=== PATIENT | female | born 1985 | race Caucasian/White ===

== ENCOUNTER 2018-10-16 11:13 | Observation (INO) | payer OTHER ==
[~2018-10-16] VITALS: Ht 168 cm; Wt 121.6 kg
[~2018-10-16 11:13] MED LIST: OXYTOCIN 30 UNITS/LACT RINGERS 500 ML IV ONE; RINGERS SOLUTION,LACTATED 1,000 ML IV PRN
[2018-10-16] MEDS ORDERED: LIDOCAINE/PF 1% 30 ML VIAL INJ PRN (11:15)
[2018-10-16] MEDS ORDERED: METOCLOPRAMIDE HCL 5 MG/ML 2 ML VIAL IVP PRN (11:15)
[2018-10-16] MEDS ORDERED: CITRIC ACID/SODIUM CITRATE 30 ML SOLUTION UDCUP PO PRN (11:15)
[2018-10-16] MEDS ORDERED: FentaNYL CITRATE-PF 100 MCG/2 ML VIAL IVP PRN (11:15)
[2018-10-16] MEDS ORDERED: OXYGEN THERAPY IH SCH (11:15)
[2018-10-16] MEDS ORDERED: METHYLERGONOVINE MALEATE 0.2 MG/ML VIAL IM PRN (11:15)
[2018-10-16] MEDS ORDERED: PREN1TAB80 PO (11:22)
[2018-10-16 11:57] LABS: BASOPHILS % (AUTO) 0.2 % (0.0-2.0); EOSINOPHILS % (AUTO) 0.5 % (1.0-6.0); HEMATOCRIT 37.9 % (36-46); HEMOGLOBIN 12.6 g/dL (12.0-16.0); LYMPHOCYTES # (AUTO) 1.3 K/uL (1.0-4.8); LYMPHOCYTES % (AUTO) 13.3 % (22.0-44.0); MEAN CORPUSCULAR HEMOGLOBIN 30.5 pg (26.0-34.0); MEAN CORPUSCULAR HGB CONC 33.2 G/dL (31.0-37.0); MEAN CORPUSCULAR VOLUME 92 fL (80-100); MONOCYTES # (AUTO) 0.5 K/uL (0.1-1.0); MONOCYTES % (AUTO) 5.1 % (2.0-9.0); NEUTROPHILS # (AUTO) 7.6 K/uL (1.8-7.7); NEUTROPHILS % (AUTO) 80.9 % (40.0-70.0); PLATELET COUNT (AUTO) 265 K/uL (150-450); RED BLOOD CELL COUNT(AUTO) 4.13 MIL/uL (4.00-5.20); RED CELL DISTRIBUTION WIDTH 14.4 % (11.5-14.5)
[2018-10-16] MEDS: RINGERS SOLUTION,LACTATED 1,000 ML IV SCH ×3 (12:03→22:05)
[2018-10-16] MEDS: MISOPROSTOL 50 MCG TABLET PO SCH ×3 (14:11→22:05)
[2018-10-16 21:55] VITALS: BP 108/59
[2018-10-17] MEDS ORDERED: OXYTOCIN 30 UNITS/LACT RINGERS 500 ML IV ONE (01:55)
[2018-10-17] MEDS: MISOPROSTOL 50 MCG TABLET PO SCH (02:02)
[2018-10-17] MEDS ORDERED: OXYTOCIN 30 UNITS/LACT RINGERS 500 ML IV PRN (06:02)
[2018-10-17] MEDS: RINGERS SOLUTION,LACTATED 1,000 ML IV SCH (08:32)
== END 2018-10-17 10:50 | disposition home or self-care (01) ==
LOC: OBSVTOIN 11:13 → 4S 11:13 → INTOOBSV 11:13
PROVIDERS: ADMIT Obstetrics & Gynecology; ATTEND Obstetrics & Gynecology
DX: O09.523 Supervision of elderly multigravida, third trimester (principal); Z3A.39 39 weeks gestation of pregnancy; Z23 Encounter for immunization
CPT/HCPCS: 36415; 76805; 85025; 86850; 86900; 86901; 90471; 90686; 96365; G0378 ×2; J2590; J7120 ×2

== ENCOUNTER 2018-10-24 09:16 | Inpatient (IN) | payer OTHER ==
[~2018-10-24] VITALS: Ht 169 cm; Wt 121.8 kg
[~2018-10-24 09:16] MED LIST changes: -OXYTOCIN 30 UNITS/LACT RINGERS 500 ML IV ONE; +PREN1TAB80 PO; -RINGERS SOLUTION,LACTATED 1,000 ML IV PRN
[2018-10-24] MEDS ORDERED: OXYTOCIN 30 UNITS/LACT RINGERS 500 ML IV ONE (09:23)
[2018-10-24] MEDS ORDERED: RINGERS SOLUTION,LACTATED 1,000 ML IV PRN (09:23)
[2018-10-24] MEDS ORDERED: METOCLOPRAMIDE HCL 5 MG/ML 2 ML VIAL IVP PRN (09:30)
[2018-10-24] MEDS ORDERED: CITRIC ACID/SODIUM CITRATE 30 ML SOLUTION UDCUP PO PRN (09:30)
[2018-10-24 10:21] LABS: BASOPHILS % (AUTO) 0.5 % (0.0-2.0); EOSINOPHILS % (AUTO) 0.6 % (1.0-6.0); HEMATOCRIT 37.2 % (36-46); HEMOGLOBIN 12.4 g/dL (12.0-16.0); LYMPHOCYTES # (AUTO) 1.5 K/uL (1.0-4.8); LYMPHOCYTES % (AUTO) 16.9 % (22.0-44.0); MEAN CORPUSCULAR HEMOGLOBIN 30.8 pg (26.0-34.0); MEAN CORPUSCULAR HGB CONC 33.4 G/dL (31.0-37.0); MEAN CORPUSCULAR VOLUME 92 fL (80-100); MONOCYTES # (AUTO) 0.6 K/uL (0.1-1.0); MONOCYTES % (AUTO) 6.4 % (2.0-9.0); NEUTROPHILS # (AUTO) 6.6 K/uL (1.8-7.7); NEUTROPHILS % (AUTO) 75.6 % (40.0-70.0); PLATELET COUNT (AUTO) 265 K/uL (150-450); RED BLOOD CELL COUNT(AUTO) 4.03 MIL/uL (4.00-5.20)
[2018-10-24] MEDS: MISOPROSTOL 50 MCG TABLET PO SCH ×3 (10:36→18:17)
[2018-10-24] MEDS: RINGERS SOLUTION,LACTATED 1,000 ML IV SCH ×2 (10:36→17:00)
[2018-10-24 13:32] VITALS: BP 108/58
[2018-10-24] MEDS ORDERED: AMPICILLIN SODIUM 2 GM/NS 100 ML IV ONE (19:00)
[2018-10-24] MEDS ORDERED: OXYGEN THERAPY IH SCH (20:00)
[2018-10-24] MEDS ORDERED: OXYTOCIN 30 UNITS/LACT RINGERS 500 ML IV PRN (20:30)
[2018-10-24] MEDS: AMPICILLIN SODIUM 1 GM/NS 50 ML IV SCH (23:01)
[2018-10-25] MEDS ORDERED: ONDANSETRON HCL 4 MG/2 ML VIAL IVP PRN
[2018-10-25] MEDS ORDERED: NALBUPHINE HCL 10 MG/ML VIAL IVP PRN
[2018-10-25] MEDS ORDERED: DiphenhydrAMINE HCL 50 MG/ML VIAL IVP PRN
[2018-10-25] MEDS ORDERED: ROPIVACAINE HCL/PF 0.2% 100 ML ED PRN
[2018-10-25] MEDS ORDERED: LIDOCAINE/PF 2% 5 ML VIAL ONE ×3 (00:10→08:43)
[2018-10-25] MEDS ORDERED: ROPIVACAINE HCL/PF 0.2% 100 ML ED ONE ×2 (00:10→08:43)
[2018-10-25] MEDS: FentaNYL CITRATE-PF 100 MCG/2 ML VIAL IVP PRN ×2 (03:34→03:35)
[2018-10-25] MEDS: RINGERS SOLUTION,LACTATED 1,000 ML IV SCH ×2 (03:37→09:10)
[2018-10-25] MEDS: AMPICILLIN SODIUM 1 GM/NS 50 ML IV SCH ×2 (07:08→11:45)
[2018-10-25] MEDS ORDERED: MINERAL OIL 30 ML UDCUP VG ONE (10:30)
[2018-10-25] MEDS ORDERED: OXYTOCIN 30 UNITS/LACT RINGERS 500 ML IV ONE (16:48)
[2018-10-25] MEDS ORDERED: IBUPROFEN 800 MG TABLET PO PRN (17:00)
[2018-10-25] MEDS ORDERED: OxyCODONE HCL/ACETAMINOPHEN 5-325 MG TABLET PO PRN ×2 (17:00)
[2018-10-25] MEDS ORDERED: GLYCERIN/WITCH HAZEL LEAF 40 PADS JAR TP PRN (17:00)
[2018-10-25] MEDS ORDERED: BENZOCAINE 20%/MENTHOL 56 GM SPRAY CANISTER TP PRN (17:00)
[2018-10-25] MEDS ORDERED: LIDOCAINE/PF 1% 30 ML VIAL INJ PRN (17:00)
[2018-10-25] MEDS ORDERED: LANOLIN 7 GM OINTMENT TP PRN (17:00)
[2018-10-25] MEDS ORDERED: MISOPROSTOL 100 MCG TABLET ONE (17:27)
[2018-10-25] MEDS ORDERED: RINGERS SOLUTION,LACTATED 1,000 ML IV ONE (17:27)
[2018-10-25] MEDS ORDERED: ACETAMINOPHEN 325 MG TABLET PO ONE (17:30)
[2018-10-25] MEDS ORDERED: MISOPROSTOL 100 MCG TABLET PO ONE (17:30)
[2018-10-25] MEDS ORDERED: METHYLERGONOVINE MALEATE 0.2 MG/ML VIAL IM ONE (17:30)
[2018-10-25] MEDS ORDERED: MEPERIDINE-PF 25 MG/ML VIAL IM ONE (17:30)
[2018-10-25] MEDS ORDERED: TRANEXAMIC ACID 1,000 MG in DEXTROSE 5%-WATER 50 ML IV ONE ×4 (18:15)
[2018-10-25 18:40] LABS: BASOPHILS % (AUTO) 0.2 % (0.0-2.0); EOSINOPHILS % (AUTO) 0 % (1.0-6.0); HEMATOCRIT 37.8 % (36-46); HEMOGLOBIN 12.4 g/dL (12.0-16.0); LYMPHOCYTES % (AUTO) 5.6 % (22.0-44.0); MEAN CORPUSCULAR HEMOGLOBIN 30.4 pg (26.0-34.0); MEAN CORPUSCULAR HGB CONC 32.7 G/dL (31.0-37.0); MEAN CORPUSCULAR VOLUME 93 fL (80-100); MONOCYTES # (AUTO) 0.8 K/uL (0.1-1.0); MONOCYTES % (AUTO) 4.7 % (2.0-9.0); NEUTROPHILS # (AUTO) 15.8 K/uL (1.8-7.7); PLATELET COUNT (AUTO)-OB 232 K/uL (150-450); RED BLOOD CELL COUNT(AUTO) 4.07 MIL/uL (4.00-5.20); RED CELL DISTRIBUTION WIDTH 14.9 % (11.5-14.5)
[2018-10-25 18:47] LABS: NEUTROPHILS % (AUTO) 89.5 % (40.0-70.0)
[2018-10-25] MEDS: MAGNESIUM HYDROXIDE SUSPENSION 30 ML UDCUP PO PRN (20:59)
[2018-10-26 05:49] LABS: BASOPHILS % (AUTO) 0.2 % (0.0-2.0); EOSINOPHILS % (AUTO) 0.4 % (1.0-6.0); HEMATOCRIT 32.3 % (36-46); HEMOGLOBIN 10.7 g/dL (12.0-16.0); LYMPHOCYTES # (AUTO) 1.8 K/uL (1.0-4.8); MEAN CORPUSCULAR HEMOGLOBIN 30.2 pg (26.0-34.0); MEAN CORPUSCULAR HGB CONC 33.1 G/dL (31.0-37.0); MEAN CORPUSCULAR VOLUME 91 fL (80-100); MONOCYTES # (AUTO) 0.8 K/uL (0.1-1.0); MONOCYTES % (AUTO) 6.9 % (2.0-9.0); NEUTROPHILS # (AUTO) 9.2 K/uL (1.8-7.7); NEUTROPHILS % (AUTO) 77.5 % (40.0-70.0); PLATELET COUNT (AUTO)-OB 231 K/uL (150-450); RED BLOOD CELL COUNT(AUTO) 3.54 MIL/uL (4.00-5.20); RED CELL DISTRIBUTION WIDTH 15.3 % (11.5-14.5)
[2018-10-26] MEDS: MAGNESIUM HYDROXIDE SUSPENSION 30 ML UDCUP PO PRN (09:06)
[2018-10-26] MEDS ORDERED: IBUP-2071 PO (13:53)
[2018-10-26] MEDS ORDERED: DSS100 PO (13:53)
[2018-10-26] MEDS ORDERED: FERR-89 PO (13:54)
== END 2018-10-26 17:10 | disposition home or self-care (01) | DRG 806 ==
LOC: OBSVTOIN 09:16 → 4S 09:16
PROVIDERS: ADMIT Obstetrics & Gynecology; ATTEND Obstetrics & Gynecology
PROC: 10E0XZZ Delivery of Products of Conception, External Approach (ICD-10-PCS; principal; 2018-10-25)
PROC: 3E0R3BZ Introduction of Anesthetic Agent into Spinal Canal, Percutaneous Approach (ICD-10-PCS; 2018-10-25)
PROC: 00HU33Z Insertion of Infusion Device into Spinal Canal, Percutaneous Approach (ICD-10-PCS; 2018-10-25)
DX: O69.81X0 Labor and delivery complicated by cord around neck, without compression, not applicable or unspecified (principal); O72.1 Other immediate postpartum hemorrhage; Z37.0 Single live birth; Z3A.41 41 weeks gestation of pregnancy
CPT/HCPCS: 86850; 86900; 86901; J0290; J2175; J2210; J2590; J2795; J3010; J3490; J7060; J7120